=== PATIENT | male | born 1975 | race Caucasian/White ===

== ENCOUNTER 2016-08-07 20:42 | Emergency (ER) | payer OTHER ==
[~2016-08-07 20:42] MED LIST: ALTACE PO; ARTANE2 M1; ATARAX PO; BACTROBAN15 GM TOP; CLARITIN10 M2; DEPAKOTE ER; DOXYCYCLINE PO; ELIMITE60 GM TOP; HCTZ PO; HYDROCORTISONE 2.5%; KEFLEX PO; KLONOPIN; LOPRESSOR; LOPRESSOR PO; MEDROL PO; METOPROLOL TAR25 MG DOB; MOTRIN600 M2 PO; PREDNISONE PO; TAGAMET PO; THORAZINE PO; THORAZINE100 MG PO; TRIHEXYPHENIDYL2 MG PO; VISTARIL PO
== END 2016-08-07 21:00 | disposition home or self-care (01) ==
LOC: SED 20:42
DX: S51.851A Open bite of right forearm, initial encounter (principal); W50.3XXA Accidental bite by another person, initial encounter; Y92.9 Unspecified place or not applicable; I10 Essential (primary) hypertension
CPT/HCPCS: 99283